=== PATIENT | male | born 1950 | race Caucasian/White ===

== ENCOUNTER 2021-09-15 12:30 | Inpatient (IN) | payer OTHER, MEDICARE ==
[2021-10-18 14:41] VITALS: BMI 30.5
[2021-10-20] MEDS ORDERED: Acetaminophen 325 MG TAB ONE (09:51)
[2021-10-20] MEDS ORDERED: Gabapentin 300 MG CAP ONE (09:53)
[2021-10-20] MEDS ORDERED: Ketorolac Tromethamine 30 MG/ML VIAL ONE ×3 (09:53→19:39)
[2021-10-20] MEDS ORDERED: Lidocaine 1% MPF 2 ML VIAL ONE (09:53)
[2021-10-20] MEDS ORDERED: Tranexamic Acid 1,000 MG/10 ML VIAL ONE (11:08)
[2021-10-20] MEDS ORDERED: Neomycin-Polymyxin 1 ML AMP ONE (11:09)
[2021-10-20] MEDS ORDERED: Morphine 10 MG/ML VIAL ONE (11:17)
[2021-10-20] MEDS ORDERED: EPINEPHrine 1 MG/ML AMP ONE (11:17)
[2021-10-20] MEDS ORDERED: Ropivacaine 0.2% HCl/PF 40 ML ONE (11:18)
[2021-10-20] MEDS ORDERED: Lidocaine 1% PF 5 ML VIAL ONE (11:49)
[2021-10-20] MEDS ORDERED: PROPOFOL 20 ML ONE (11:49)
[2021-10-20] MEDS ORDERED: Rocuronium Bromide 10 MG/ML (10ML VIAL) ONE ×2 (11:49→15:52)
[2021-10-20] MEDS ORDERED: CEFAZOLIN 2 GM VIAL ONE (11:54)
[2021-10-20] MEDS ORDERED: Ondansetron PF 4 MG/2 ML Vial IVP PRN ×2 (12:18→12:29)
[2021-10-20] MEDS ORDERED: Morphine 2 MG/ML VIAL SLOW IVP PRN (12:18)
[2021-10-20] MEDS ORDERED: traMADol HCl 50 MG TAB PO PRN (12:18)
[2021-10-20] MEDS ORDERED: Zolpidem Tartrate 5 MG TAB PO PRN ×2 (12:18→12:29)
[2021-10-20] MEDS ORDERED: Acetaminophen 325 MG TAB PO PRN ×2 (12:18→12:29)
[2021-10-20] MEDS ORDERED: diphenhydrAMINE 25 MG CAP PO PRN (12:18)
[2021-10-20] MEDS ORDERED: Promethazine HCl 25 MG/ML VIAL IM PRN (12:18)
[2021-10-20] MEDS ORDERED: diphenhydrAMINE 50 MG CAP PO PRN (12:29)
[2021-10-20] MEDS ORDERED: Milk Of Magnesia 30 ML UDCUP PO PRN (12:29)
[2021-10-20] MEDS ORDERED: Bisacodyl 10 MG SUPP PR PRN (12:29)
[2021-10-20] MEDS ORDERED: Methocarbamol 500 MG TAB PO PRN (12:29)
[2021-10-20] MEDS ORDERED: ePHEDrine Sulfate 50 MG/10 ML VIAL ONE (12:37)
[2021-10-20] MEDS ORDERED: Ketorolac Tromethamine 30 MG/ML VIAL IVP SCH (14:00)
[2021-10-20] MEDS ORDERED: Ondansetron PF 4 MG/2 ML Vial ONE (14:14)
[2021-10-20] MEDS ORDERED: SUGAMMADEX SODIUM 200 MG/2 ML VIAL ONE (17:11)
[2021-10-20] MEDS ORDERED: CEFAZOLIN 1 GM VIAL ONE (17:13)
[2021-10-20] MEDS ORDERED: Fentanyl 100 MCG/2 ML VIAL ONE ×2 (17:14→18:16)
[2021-10-20] MEDS ORDERED: HYDROmorphone 0.5 MG/0.5 ML SYRINGE ONE ×2 (17:57→18:04)
[2021-10-20] MEDS ORDERED: Ropivacaine 0.5% HCl/PF (150 MG/30 ML VIAL) ONE (18:35)
[2021-10-20 18:57] LABS: Hemoglobin 15.2 g/dL (13.5-17.5)
[2021-10-20] MEDS ORDERED: Aspirin 81 mg Enteric Coated Tablet PO SCH (21:00)
[2021-10-20] MEDS: CEFAZOLIN 2 GM in Sodium Chloride 0.9% 100 ML IVPB SCH ×2 (22:20)
[2021-10-20] MEDS: Lactated Ringer's 1,000 ML IV SCH ×2 (22:21→22:23)
[2021-10-20] MEDS: Senokot S 8.6-50 MG TAB PO SCH (22:25)
[2021-10-20] MEDS: Ferrous Gluconate 324 MG TAB PO SCH (22:26)
[2021-10-20] MEDS: Aspirin 81 mg Enteric Coated Tablet PO SCH (22:26)
[2021-10-20] MEDS: Famotidine/PF 20 mg/2ml Vial SLOW IVP SCH (22:26)
[2021-10-20] MEDS: Sodium Chloride 0.9% 1,000 ML IV SCH (23:14)
[2021-10-20] MEDS: Ketorolac Tromethamine 30 MG/ML VIAL IVP SCH (23:14)
[2021-10-21] MEDS: Ketorolac Tromethamine 30 MG/ML VIAL IVP SCH ×4 (00:15→18:17)
[2021-10-21] MEDS: Sodium Chloride 0.9% 1,000 ML IV SCH ×4 (02:13→23:55)
[2021-10-21 05:24] LABS: Hemoglobin 14.1 g/dL (13.5-17.5); Mean Corpuscular HGB CONC 31.2 g/dL (32.0-36.0); Mean Corpuscular Hemoglobin 26.3 pg (27.0-33.0); Mean Corpuscular Volume 84.2 fl (81.2-95.1); Mean Platelet Volume 10.3 fl (7.4-10.4); Platelet Count 191 10x3/uL (150-450); RBC Distribution Width 15.9 % (11.5-14.5); Red Blood Cell (RBC) Count 5.37 10x6/uL (4.32-5.72); White Blood Cell (WBC) Count 12.1 10x3/uL (3.5-10.5)
[2021-10-21] MEDS: Lactated Ringer's 1,000 ML IV SCH (06:01)
[2021-10-21] MEDS: Enoxaparin Sodium 30 MG/0.3 ML SYRINGE SC SCH (08:26)
[2021-10-21] MEDS: Senokot S 8.6-50 MG TAB PO SCH ×2 (08:27→20:44)
[2021-10-21] MEDS: Famotidine/PF 20 mg/2ml Vial SLOW IVP SCH ×2 (08:27→20:56)
[2021-10-21] MEDS: Multivitamin W/ Minerals 1 TAB PO SCH (08:27)
[2021-10-21] MEDS: Ferrous Gluconate 324 MG TAB PO SCH ×2 (08:27→20:43)
[2021-10-21] MEDS: Aspirin 81 mg Enteric Coated Tablet PO SCH (08:27)
[2021-10-21] MEDS: traMADol HCl 50 MG TAB PO PRN ×2 (10:36→22:26)
[2021-10-21] MEDS: Gabapentin 300 MG CAP PO SCH (20:43)
[2021-10-21] MEDS: Carvedilol 12.5 MG TAB PO SCH (20:43)
[2021-10-21] MEDS: Morphine 4 MG/ML VIAL SLOW IVP PRN (20:55)
[2021-10-21] MEDS ORDERED: clonazePAM 1 MG TAB PO SCH (21:00)
[2021-10-22] MEDS: Morphine 4 MG/ML VIAL SLOW IVP PRN (04:08)
[2021-10-22 04:47] LABS: Hemoglobin 12.6 g/dL (13.5-17.5); Mean Corpuscular HGB CONC 32.3 g/dL (32.0-36.0); Mean Corpuscular Hemoglobin 26.6 pg (27.0-33.0); Mean Corpuscular Volume 82.5 fl (81.2-95.1); Mean Platelet Volume 9.9 fl (7.4-10.4); Platelet Count 185 10x3/uL (150-450); RBC Distribution Width 15.9 % (11.5-14.5); Red Blood Cell (RBC) Count 4.73 10x6/uL (4.32-5.72); White Blood Cell (WBC) Count 6.5 10x3/uL (3.5-10.5)
[2021-10-22] MEDS ORDERED: Cholecalciferol 1,000 UNITS (25 MCG) TAB PO SCH (09:00)
[2021-10-22] MEDS ORDERED: [UNRECOGNIZED DRUG - MIXTURE] PO SCH (09:00)
[2021-10-22] MEDS ORDERED: Lisinopril 20 MG TAB PO SCH (09:00)
[2021-10-22] MEDS ORDERED: Lantus 1000 UNITS/10 ML VIAL SC SCH (09:00)
[2021-10-22] MEDS ORDERED: CeleCOXIB 100 MG CAP PO SCH (09:00)
[2021-10-22] MEDS ORDERED: Aspirin 81 mg Enteric Coated Tablet PO SCH (09:00)
[2021-10-22] MEDS ORDERED: Rosuvastatin 20 MG TAB PO SCH (09:00)
[2021-10-22] MEDS: Enoxaparin Sodium 30 MG/0.3 ML SYRINGE SC SCH (09:04)
[2021-10-22] MEDS: Senokot S 8.6-50 MG TAB PO SCH (09:04)
[2021-10-22] MEDS: Gabapentin 300 MG CAP PO SCH (09:05)
[2021-10-22] MEDS: Famotidine/PF 20 mg/2ml Vial SLOW IVP SCH (09:05)
[2021-10-22] MEDS: traMADol HCl 50 MG TAB PO PRN (09:05)
[2021-10-22] MEDS: Multivitamin W/ Minerals 1 TAB PO SCH (09:06)
[2021-10-22] MEDS: Ferrous Gluconate 324 MG TAB PO SCH (09:06)
[2021-10-22] MEDS: Carvedilol 12.5 MG TAB PO SCH (09:07)
[2021-10-22 11:32] VITALS: TEMP 97.6
[2021-10-22 12:50] VITALS: BP 148/73
[2021-10-24 13:13] LABS: Fungus Stain Final report (.)
[2021-10-24 13:13] LABS: Fungus Stain Final report (.)
[2021-10-26] MEDS ORDERED: OZEMPIC PO SCH (09:00)
== END 2021-10-22 12:05 | disposition home or self-care (01) | DRG 483 ==
LOC: CSHERHOLD 10-20 09:35 → CSHTELE 10-20 21:21
PROVIDERS: ADMIT Orthopaedic Surgery; ATTEND Orthopaedic Surgery
PROC: 3E0T3BZ Introduction of Anesthetic Agent into Peripheral Nerves and Plexi, Percutaneous Approach (ICD-10-PCS; 2021-10-20)
PROC: 0PSF04Z Reposition Right Humeral Shaft with Internal Fixation Device, Open Approach (ICD-10-PCS; principal; 2021-10-21)
PROC: 0RRJ00Z Replacement of Right Shoulder Joint with Reverse Ball and Socket Synthetic Substitute, Open Approach (ICD-10-PCS; 2021-10-21)
DX: T84.038A Mechanical loosening of other internal prosthetic joint, initial encounter (principal); M96.621 Fracture of humerus following insertion of orthopedic implant, joint prosthesis, or bone plate, right arm; T84.89XA Other specified complication of internal orthopedic prosthetic devices, implants and grafts, initial encounter; Y84.8 Other medical procedures as the cause of abnormal reaction of the patient, or of later complication, without mention of misadventure at the time of the procedure; Y92.234 Operating room of hospital as the place of occurrence of the external cause; M85.811 Other specified disorders of bone density and structure, right shoulder; E11.9 Type 2 diabetes mellitus without complications; I10 Essential (primary) hypertension; Z95.1 Presence of aortocoronary bypass graft; G47.33 Obstructive sleep apnea (adult) (pediatric); Z96.611 Presence of right artificial shoulder joint
CPT/HCPCS: 36415; 36416; 85014; 85018; 85027; 87070; 87076; 87102; 87205; 87206; C1713; C1776; J0171; J0690; J1170; J1650; J1815; J1885; J2270; J2405; J2704; J2795; J3010; J3370; J3490; J7050; J7120; S0028

== ENCOUNTER 2021-10-15 11:48 | Outpatient (CLI) | payer MEDICARE ==
[2021-10-15 12:37] LABS: Hemoglobin 14.3 g/dL (13.5-17.5); Mean Corpuscular HGB CONC 32.3 g/dL (32.0-36.0); Mean Corpuscular Hemoglobin 26.2 pg (27.0-33.0); Mean Corpuscular Volume 81.3 fl (81.2-95.1); Mean Platelet Volume 10.1 fl (7.4-10.4); Platelet Count 202 10x3/uL (150-450); RBC Distribution Width 16.4 % (11.5-14.5); Red Blood Cell (RBC) Count 5.45 10x6/uL (4.32-5.72); White Blood Cell (WBC) Count 5.8 10x3/uL (3.5-10.5)
[2021-10-15 12:50] LABS: INR-International Normal Ratio 1.1; PTT 27.6 sec (22.0-33.0); Prothrombin Time 11.4 sec (9.5-12.1)
[2021-10-15 12:56] LABS: Anion Gap 13 mmol/L (10-20); BUN (Urea Nitrogen) 28 mg/dL (8.4-25.7); CRP (Inflammatory) Less than 0.50 mg/dL (= or < 0.5); Calc. Creatinine Clearance 0 mL/min (70-130); Carbon Dioxide 27 mmol/L (23-31); Chloride 104 mmol/L (98-107); Estimated GFR 54; Glucose 145 mg/dL (80-115); Potassium 4.8 mmol/L (3.5-5.1); Sodium 139 mmol/L (136-145)
[2021-10-15 16:27] LABS: Hemoglobin A1c 6.7 % (4.0-6.0)
== END 2021-10-15 11:49 | disposition home or self-care (01) ==
LOC: CSHLAB 11:48
PROVIDERS: ATTEND Orthopaedic Surgery
DX: Z01.818 Encounter for other preprocedural examination (principal); Z20.822 Contact with and (suspected) exposure to COVID-19; T84.038A Mechanical loosening of other internal prosthetic joint, initial encounter
CPT/HCPCS: 80048; 82306; 83036; 85027; 85610; 85652; 85730; 86140; 87811

== ENCOUNTER 2021-10-30 19:36 | Emergency (ER) | payer MEDICARE ==
[2021-10-30] MEDS ORDERED: Ondansetron ODT 4 MG TAB ONE (20:34)
== END 2021-10-30 21:30 | disposition home or self-care (01) ==
LOC: CSHERS 19:36
DX: R11.2 Nausea with vomiting, unspecified (principal); R50.9 Fever, unspecified; Z20.822 Contact with and (suspected) exposure to COVID-19; E78.5 Hyperlipidemia, unspecified; E11.9 Type 2 diabetes mellitus without complications; I10 Essential (primary) hypertension
CPT/HCPCS: U0003; U0005; 99284; Q0162

== ENCOUNTER 2024-11-15 06:09 | Day surgery (SDC) | payer MEDICARE, OTHER ==
[2024-11-13 11:15] VITALS: BMI 32.1
[2024-11-15 07:30] LABS: #Basophils 0.06 10x3/uL (0.0-0.2); #Eosinophils 0.34 10x3/uL (0.0-0.5); #Monocytes 0.69 10x3/uL (0.0-1.1); #Neutrophils 3.57 10x3/uL (1.5-8.4); %Basophils 1.0 % (0.0-2.0); %Eosinophils 5.9 % (0.0-6.0); %Lymphocytes 18.9 % (18.0-47.0); %Monocytes 12.0 % (0.0-10.0); %Neutrophils 62.0 % (40.0-75.0); Hematocrit 48.5 % (38.8-50.0); Hemoglobin 15.9 g/dL (13.5-17.5); Mean Corpuscular Hemoglobin 28.8 pg (27.0-33.0); Mean Corpuscular Volume 87.7 fL (81.2-95.1); Platelet Count 170 10x3/uL (150-450); Red Blood Cell (RBC) Count 5.53 10x6/uL (4.32-5.72); White Blood Cell (WBC) Count 5.76 10x3/uL (3.5-10.5)
[2024-11-15] MEDS ORDERED: PROPOFOL 20 ML ONE (07:45)
[2024-11-15] MEDS ORDERED: Ondansetron PF 4 MG/2 ML Vial ONE (07:45)
[2024-11-15] MEDS ORDERED: PHENYLEPHRINE-NS 100 MCG/ML 10 ML SYRINGE ONE ×2 (07:45→10:09)
[2024-11-15 07:46] LABS: Anion Gap 17 mmol/L (10-20); BUN (Urea Nitrogen) 28 mg/dL (8.4-25.7); Calc. Creatinine Clearance 73 mL/min (70-130); Calcium 8.6 mg/dL (7.8-10.44); Carbon Dioxide 20 mmol/L (23-31); Chloride 109 mmol/L (98-107); Glucose 74 mg/dL (83-110); Potassium 3.8 mmol/L (3.5-5.1); Sodium 142 mmol/L (136-145)
[2024-11-15] MEDS ORDERED: CEFAZOLIN 2 GM VIAL ONE (08:01)
== END 2024-11-15 12:41 | disposition home or self-care (01) ==
LOC: CSHSDC 06:09
PROVIDERS: ATTEND Podiatrist Foot & Ankle Surgery
PROC: 0SGN04Z Fusion of Left Metatarsal-Phalangeal Joint with Internal Fixation Device, Open Approach (ICD-10-PCS; principal; 2024-11-15)
PROC: 0SG Lower Joints, Fusion (ICD-10-PCS; 2024-11-15)
DX: M21.612 Bunion of left foot (principal); M20.42 Other hammer toe(s) (acquired), left foot; M77.42 Metatarsalgia, left foot; I10 Essential (primary) hypertension
CPT/HCPCS: 28285; 28308; 28750; 73620; 80048; 82962; 85025; C1713 ×6; J0665; J1100; J2405; J2704; J3010; 36415; 36416